=== PATIENT | male | born 1940 | race Caucasian/White ===

== ENCOUNTER → 2020-10-22 13:32 | Outpatient (CLI) | payer MEDICARE, SELFPAY ==
--- NOTE | 2020-10-22 | DI.MRI.S_ITS ---
PROCEDURE: MR ORBITS FACE NECK WO CON INDICATIONS: Localized swelling, mass and lump, neck TECHNIQUE: Noncontrast sagittal T1 spin echo, axial FLAIR, axial gradient echo, axial diffusion and ADC acquired through the brain. Coronal STIR, thin-slice axial T1 spin echo through the orbits. After the administration of contrast, thin-slice axial and coronal T1 spin echo with fat saturation through the orbits, axial T1 spin echo with fat saturation through the brain. COMPARISON: [facility], CT SOFT TISSUE NECK WITH CONTRAST, 06/18/2015, 10:39. FINDINGS: Image quality: Excellent. Orbits: Globes are symmetrical. The optic nerves are normal in size, without abnormal signal or enhancement. No retrobulbar masses or fat abnormalities. The extra-ocular muscles are normal and symmetric in appearance. Lacrimal glands are normal. Optic chiasm is normal. Periorbital soft tissues appear normal. CSF spaces: Ventricles are normal in size and shape. Basal cisterns are patent. No extra-axial fluid collections. Brain: No intracranial bleeds or mass effects. No abnormal intracranial enhancement. Jolley-white matter interface is intact. Diffusion weighted images demonstrate no acute ischemic insults. Pituitary gland appears normal, without sellar or suprasellar masses. Brainstem appears normal. Normal intravascular flow voids are present. Skull and face: Calvarial marrow is normal in signal. There is a focus of increased T2 signal measuring 1.7 x 2.3 by 3.7 cm compared to 1.3 x 2.1 x 3.6 cm at the midline and immediately left of midline at the level of the hyoid bone. Sinuses: Sinuses demonstrate mucous retention cyst versus polyps within the maxillary sinuses bilaterally. Bilateral maxillary, sphenoid and ethmoid sinus mucosal thickening is present. Minimal fluid is present within the mastoid air cells bilaterally, right greater than left. Multilevel degenerative changes are present within the visualized cervical spine. IMPRESSION: 1. 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 2. No other areas of abnormal mass lesion are identified. 3. Prominent pansinus disease. Dictated by: Brissa Mclean M.D. on 10/22/2020 at 16:36 Approved by: Brissa Mclean M.D. on 10/22/2020 at 16:44
--- NOTE | 2020-10-22 | DI.MRI.S_ITS ---
PROCEDURE: MR HEAD/BRAIN WO CON INDICATIONS: AMNESIA TECHNIQUE: Non-contrast axial T1 spin echo, axial T2 fast spin echo, sagittal and axial FLAIR, coronal T2 fast spin echo, axial gradient echo, axial diffusion and ADC through the brain. COMPARISON: [facility], MR, MR ORBITS FACE NECK WO CON, 10/22/2020, 15:52. FINDINGS: Image quality: Excellent. CSF spaces: The lateral ventricles are abnormally prominent and are disproportionately prominent compared to the degree of sulcal atrophy. Basal cisterns are patent. No extra-axial fluid collections. Brain: No intracranial bleeds or mass effects. There is cerebral volume loss for age. There are periventricular and deep white matter chronic small vessel ischemic changes. Brainstem appears normal. Diffusion-weighted images show no acute ischemic insults. No chronic ischemic insults. Normal intravascular flow voids are present. Skull and face: Calvarial bone marrow is normal in signal. Orbits are normal. Note is made of bilateral lens replacements. Sinuses: Large mucous retention cysts can be seen within the maxillary sinuses, left worse than right. There is moderate mucosal thickening within the ethmoid air cells. Soft tissue fullness can be seen within the nasal cavities, left worse than right. No abnormal fluid is seen within the mastoid air cells. IMPRESSION: Abnormally prominent lateral ventricles, which are disproportionately prominent given the degree of sulcal atrophy. Please consider normal pressure hydrocephalus. No findings of acute or subacute infarction can be seen. Likely nasal polyp disease. Please correlate with known patient history and physical examination findings. Incidental note is made of: Maxillary sinus mucous retention cysts Dictated by: Eldon Hidalgo M.D. on 10/22/2020 at 16:56 Approved by: Eldon Hidalgo M.D. on 10/22/2020 at 16:59
== END ==
PROVIDERS: Family Provider Family Medicine; PCP Family Medicine; Referring Provider Family Medicine; Visit Provider Family Medicine
DX: R22.1 Localized swelling, mass and lump, neck (principal); R41.3 Other amnesia; R41.89 Other symptoms and signs involving cognitive functions and awareness; R26.89 Other abnormalities of gait and mobility; M47.812 Spondylosis without myelopathy or radiculopathy, cervical region; J32.4 Chronic pansinusitis; J34.1 Cyst and mucocele of nose and nasal sinus; Z13.5 Encounter for screening for eye and ear disorders
CPT/HCPCS: 70540; 70551

== ENCOUNTER 2021-12-11 14:32 | Emergency (ER) | payer MEDICARE, SELFPAY ==
[2021-12-11] VITALS (20 sets, daily range): BP systolic 144–169; BP diastolic 73–95; PULSE 65–82; RESP 13–35; TEMP 36.6; O2SAT 96–99; BMI 30.7
--- NOTE | 2021-12-11 14:52 | DI.RAD.S_ITS ---
PROCEDURE: XR CHEST 1V INDICATIONS: chest pain TECHNIQUE: One view of the chest was acquired. COMPARISON: [facility], CT, CT CERVICAL SPINE WO CON, 12/11/2021, 15:06. [facility], CT, CT CHEST WITHOUT CONTRAST, 10/22/2020, 9:57. [facility], CR, XR CHEST 2 VIEWS, 10/16/2020, 14:44. [facility], CT, CT HEAD/BRAIN WO CON, 12/11/2021, 15:06. FINDINGS: Surgical changes and devices: Right-sided SHIPFITTER HELPER shunt catheter tubing is seen. Lungs and pleura: On this semiupright portable chest examination, no large pneumothorax or large pleural effusions are seen. No focal infiltrates are seen. Low lung volumes are noted. This causes a crowded appearance to the lung markings and limits evaluation. Mediastinum: The cardiac contours are within normal limits. The aorta demonstrates calcification and tortuosity. Bones and chest wall: Age-appropriate bony degenerative changes are seen. No suspicious bony lesions. Overlying soft tissues appear unremarkable. IMPRESSION: Limited portable chest examination, without a significant cardiopulmonary abnormality identified. Postoperative and degenerative changes are seen. Dictated by: Eldon Hidalgo M.D. on 12/11/2021 at 14:53 Approved by: Eldon Hidalgo M.D. on 12/11/2021 at 14:54
--- NOTE | 2021-12-11 14:52 | DI.CT.S_ITS ---
PROCEDURE: CT HEAD/BRAIN WO CON INDICATIONS: GLF/injury/ history of shunt TECHNIQUE: Noncontrast 4.5 mm thick angled axial sections acquired from the foramen magnum to the vertex, with coronal and sagittal reformats. For radiation dose reduction, the following was used: automated exposure control, adjustment of mA and/or kV according to patient size. COMPARISON: [facility], MR, MR HEAD/BRAIN WO CON, 10/22/2020, 15:52. FINDINGS: Image quality: Excellent. CSF spaces: Basal cisterns are patent. Suspect small subdural hygromas bilaterally. Interval placement of a right posterior approach ventricular shunt catheter which crosses midline tip terminating in the left lateral ventricle anteriorly. Tiny amount of acute subdural hemorrhage present layering along the falx posteriorly, maximum thickness 3-4mm, and likely also the right tentorium. Brain: No midline shift. No intracranial masses or hemorrhage. Jolley-white matter interface is normal. Skull and face: Calvarium and visualized facial bones are intact, without suspicious lesions. Posterior midline scalp hematoma Sinuses: Mucoperiosteal thickening present both maxillary sinuses. IMPRESSION: 1. Tiny amount of acute subdural hemorrhage present layering along the falx posteriorly and likely also the right tentorium. No associated mass effect. 2. Suspect small subdural hygromas bilaterally. Result of small amount acute subdural hemorrhage discussed with Dr. Thomas by Dr. Vergara at 1556 hours on 12/11/2021. Dictated by: Gonzales Vergara M.D. on 12/11/2021 at 15:43 Approved by: Gonzales Vergara M.D. on 12/11/2021 at 15:56
--- NOTE | 2021-12-11 14:52 | DI.CT.S_ITS ---
PROCEDURE: CT CERVICAL SPINE WO CON INDICATIONS: GLF/injury/ history of shunt TECHNIQUE: Noncontrast 3 mm thick sections acquired from the skull base to the T4 level. Sagittal and coronal reformats were then constructed. For radiation dose reduction, the following was used: automated exposure control, adjustment of mA and/or kV according to patient size. COMPARISON: [facility], CT, CT HEAD/BRAIN WO CON, 12/11/2021, 15:06. [facility], CR, XR CHEST 1V, 12/11/2021, 15:06. FINDINGS: Image quality: Excellent. Bones: No fractures or dislocations. Visualized superior ribs are intact. Focal degenerative change is seen involving the C1-C2 interface anteriorly. There is at least moderate disc space narrowing seen at C5-C6 and C6-C7. Bridging anterior osteophytes are seen from at least C5 through T1. Post erected endplate osteophytes are seen, which are worst at C6-C7. Soft tissues: Prevertebral soft tissues are normal in thickness. No paravertebral hematomas. No apical pneumothoraces. Right-sided DIVISION SALES MANAGER shunt catheter tubing is seen, which appears intact were visualized. IMPRESSION: Negative for acute fracture. Cervical spine degenerative changes are seen, which are worst inferiorly. Partially visualized right-sided DIVISION SALES MANAGER shunt catheter tubing. Dictated by: Eldon Hidalgo M.D. on 12/11/2021 at 14:54 Approved by: Eldon Hidalgo M.D. on 12/11/2021 at 14:55
[2021-12-11 15:08] LABS: Add Manual Diff / Slide Review NO; Basophils Absolute Auto 0 /uL (0-100); Basophils Percent Auto 0.5 % (0-2); Eosinophils Absolute Auto 200 /uL (0-450); Eosinophils Percent Auto 2.3 % (2-4); Lymphocytes Absolute Auto 700 /uL (1100-4500); Lymphocytes Percent Auto 7.8 % (25-40); Mean Corpuscular HGB Conc 34.3 % (30-36); Mean Corpuscular Hemoglobin 31.3 PG (26-34); Mean Corpuscular Volume 91.3 fL (80-100); Monocytes Absolute Auto 1000 /uL (0-900); Neutrophils Absolute Auto 7000 /uL (1500-7000); Neutrophils Percent Auto 78.4 % (50-75); Platelet Count 236 X10^3/uL (150-400); Red Blood Cell Count 4.49 X10^6/uL (4.5-5.9); Red Cell Distribution Width 14.7 % (11.6-14.8); White Blood Cell Count 8.9 X10^3/uL (4.5-11.0)
[2021-12-11 15:22] LABS: Alanine Aminotransferase 21 IU/L (<50); Albumin 4.3 g/dL (3.5-5.0); Albumin Globulin Ratio 1.3 (1.0-2.8); Alkaline Phosphatase 74 U/L (38-126); Aspartate Aminotransferase 27 IU/L (17-59); BUN Creatinine Ratio 22.4 (6-22); Bilirubin Total 0.8 mg/dL (0.2-1.3); Blood Urea Nitrogen 13 mg/dL (9-20); Calcium 9.3 mg/dL (8.4-10.2); Carbon Dioxide 27 mmol/L (22-32); Chloride 98 mmol/L (98-107); Creatine Kinase 74 U/L (55-170); Estimated Glomerular Filt Rate > 60 mL/min (>60); Globulin 3.4 g/dL (1.7-4.1); Glucose 95 mg/dL (80-110); HEMOLYSIS 26 (0-50); Lipase 103 U/L (23-300); Magnesium 1.9 mg/dL (1.6-2.3); Potassium 3.8 mmol/L (3.4-5.1); Sodium 133 mmol/L (137-145); Total Protein 7.7 g/dL (6.3-8.2)
[2021-12-11 15:33] LABS: Troponin I < 0.012 ng/mL (0.01-0.034)
--- NOTE | 2021-12-11 16:14 | ED_ITS ---
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 Patient is not on any blood thinners. Patient states he was trying to put his socks on today, he lost his balance and fell backwards hitting the back of his has a headache on his post erior scalp. He defers anything for headache in terms of pain control. He denies loss of consciousness, no dizziness, no lightheadedness, denies any neck pain, no chest pain, no lap back pain. No shortness of breath. No nausea or vomiting, no vision changes. No numbness, tingling or weakness. Both he and his state he is had some slowly progressive difficulties with gait and being off balance. He had his [employer] OPERATOR shunt placed by Dr. Sagastume at [place], [place] in March of 2021. Patient states that he does drink alcohol typically 5-8 alcoholic drinks daily quit 2 days ago and has not had any additional since then. He quit using any tobacco college. He denies recreational or illicit. Lives on [address] with his both state that his mentation seems at his normal baseline. Patient states he felt little shaky but does not feel like he is having significant withdrawals no hallucinations or other mental changes. has not appreciated these as well. Related Data Home Medications Medication Instructions Recorded Confirmed cetirizine 10 mg tablet 10 mg PO QDAYP PRN ##0 10/29/15 ibuprofen 200 mg capsule 200 mg PO PRN #0 caps 12/01/15 glucosamine sulfate 500 mg capsule 1,000 mg PO ##0 11/02/16 (Genicin) omega 3-ays-ivn-fish oil 1,000 mg 1,000 mg PO ##0 11/02/16 (120 mg-180 mg) capsule (Fish Oil) Previous Rx's Medication Instructions Recorded cholecalciferol (vitamin D3) 25 1,000 iu PO QDAY ##90 08/25/11 mcg (1,000 unit) tablet (Vitamin D3) Allergies Allergy/AdvReac Type Severity Reaction Status Date / Time ketoconazole [KETOCONAZOLE] Allergy Intermediate RASH Unverified 06/07/17 12:10 lisinopril [LISINOPRIL] AdvReac Unknown COUGH Unverified 06/07/17 12:10 Review of Systems <Mica Thomas DO - Last Filed: 12/12/21 11:13> Review of Systems ROS Unobtainable: All systems reviewed & are unremarkable except as noted in HPI and below Patient History <Mica Thomas DO - Last Filed: 12/12/21 11:13> Surgical History Status post appendectomy Family History Mother Age: 100 Pulmonary fibrosis Social History Smoking Status: Former smoker Smoking Status: Former smoker alcohol intake frequency: 3 or more drinks per day Substance Use Type: does not use Exam <Mica Thomas DO - Last Filed: 12/12/21 11:13> Narrative Exam Narrative: GEN: Patient appears in mild distress. HEAD: No evidence of trauma, no raccoon/Rasmussen sign. NECK: Nontender, painless range of motion, trachea midline Positive for Nexus criteria, there is no midline line tenderness, distracting injury, altered mental status, neuro deficit, possible recent EtOH. EYES: PERRLA, EOMI ENT: External inspection normal, trachea is midline, TM's are normal no hemotypanum, Nares are clear, no septal hematoma, no dental or oral injury, airway is normal and with normal occlusion, No bony tenderness RESP: Chest is nontender and has symmetric movement, no ecchymosis, breath sounds are normal no crackles, wheezes or rales CVS: Heart sounds are normal, no murmur noted, No JVD. ABG/GI: Nontender, soft, normal bowel sounds, no distention, no organomegaly, pelvic rock is negative NEURO: Oriented AOx3, neuro is grossly intact, sensation and motor is normal all 4 extremities moving, cranial nerves II through XII are intact, GCS is 15, 10/10 muscle strength upper and lower extremities triple client leader bilaterally. Patient has normal heel-hernandez and finger-nose bilaterally sensation intact in upper and lower extremities. No changes to sensation. Gait not tested. PSYCH: Normal mood and affect SKIN: Intact, warm and dry, no crepitus and without decubitus BACK: No CVA tenderness, no vertebral tenderness, no step-off's, no crepitus EXT: Atraumatic, hips are nontender, no pedal edema, normal color and temperature, normal range of motion of extremities with normal tendon exam, 2+ pulses in all four extremities Initial Vital Signs Initial Vital Signs: Vital Signs Temperature 98 F 12/11/21 14:44 Pulse Rate 66 12/11/21 14:44 Respiratory Rate 18 12/11/21 14:44 Blood Pressure 152/74 H 12/11/21 14:44 Pulse Oximetry 99 12/11/21 14:44 Oxygen Delivery Method 12/11/21 14:44 <Donita Tamayo MD - Last Filed: 12/11/21 21:50> Initial Vital Signs Initial Vital Signs: Vital Signs Temperature 98 F 12/11/21 14:44 Pulse Rate 66 12/11/21 14:44 Respiratory Rate 18 12/11/21 14:44 Blood Pressure 152/74 H 12/11/21 14:44 Pulse Oximetry 99 12/11/21 14:44 Oxygen Delivery Method 12/11/21 14:44 Scores <Mica Thomas DO - Last Filed: 12/12/21 11:13> GCS [place] coma scale eye opening: Spontaneous [place] coma scale verbal response: Orientated [place] coma scale motor response: Obey commands [place] coma scale total score: 15 Nexus Score for C-Spine Focal Neurologic deficit present: No Midline spinal tenderness present: No Altered level of conciousness present: No Intoxication present: Yes (maybe) Distracting Injury Present: No Nexus Criteria for C-spine: 1 <Donita Tamayo MD - Last Filed: 12/11/21 21:50> GCS [place] coma scale total score: 15 Nexus Score for C-Spine Nexus Criteria for C-spine: 1 Course <Mica Thomas DO - Last Filed: 12/12/21 11:13> Orders Ordered: ED Orders 12/11/21 14:52 CT cervical spine wo con Stat CT head/brain wo con Stat XR chest 1V Stat EKG-12 Lead Stat 12/11/21 15:01 Complete Blood Count AUTO DIFF Stat Comprehensive Metabolic Panel Stat ETOH [Ethanol (ETOH)] Stat Lipase Stat Magnesium Stat PTT [Partial Thromboplastin Time] Stat Prothrombin Time INR Stat Troponin & CK Cardiac Panel Stat 12/11/21 19:00 CT head/brain wo con Stat Consultations Consultation #1: Neurosurgery [facility], Dr. Johnson recommends Head CT at 4 hours, 1900 and recontact if worsening. Time: 18:33 Vital Signs Vital signs: Vital Signs - 8 hr 12/11/21 14:44 12/11/21 14:53 12/11/21 14:54 Temperature 98 F Pulse Rate 66 78 Respiratory Rate 18 Blood Pressure 152/74 H 159/80 H Pulse Oximetry 99 96 Oxygen Delivery Method Room Air 12/11/21 14:54 12/11/21 15:00 12/11/21 15:00 Temperature Pulse Rate 69 66 Respiratory Rate 14 18 Blood Pressure 148/76 H Pulse Oximetry 96 98 Oxygen Delivery Method <Donita Tamayo MD - Last Filed: 12/11/21 21:50> Orders Ordered: ED Orders 12/11/21 14:52 CT cervical spine wo con Stat CT head/brain wo con Stat XR chest 1V Stat EKG-12 Lead Stat 12/11/21 15:01 Complete Blood Count AUTO DIFF Stat Comprehensive Metabolic Panel Stat ETOH [Ethanol (ETOH)] Stat Lipase Stat Magnesium Stat PTT [Partial Thromboplastin Time] Stat Prothrombin Time INR Stat Troponin & CK Cardiac Panel Stat 12/11/21 19:00 CT head/brain wo con Stat Vital Signs Vital signs: Vital Signs - 8 hr 12/11/21 14:44 12/11/21 14:53 12/11/21 14:54 Temperature 98 F Pulse Rate 66 78 Respiratory Rate 18 Blood Pressure 152/74 H 159/80 H Pulse Oximetry 99 96 Oxygen Delivery Method Room Air 12/11/21 14:54 12/11/21 15:00 12/11/21 15:00 Temperature Pulse Rate 69 66 Respiratory Rate 14 18 Blood Pressure 148/76 H Pulse Oximetry 96 98 Oxygen Delivery Method MDM - Head Injury <Mica Thomas DO - Last Filed: 12/12/21 11:13> Lab Data Result diagrams: 12/11/21 15:01 12/11/21 15:01 Labs: Lab Results 12/11/21 12/11/21 12/11/21 Range/Units 15:01 15:01 15:01 WBC 8.9 (4.5-11.0) X10^3/uL RBC 4.49 L (4.5-5.9) X10^6/uL Hgb 14.0 (13.5-17.5) g/dL Hct 41.0 (41-53) % MCV 91.3 (80-100) fL MCH 31.3 (26-34) PG MCHC 34.3 (30-36) % RDW 14.7 (11.6-14.8) % Plt Count 236 (150-400) X10^3/uL Neut % (Auto) 78.4 H (50-75) % Lymph % (Auto) 7.8 L (25-40) % Bennett % (Auto) 11.0 (3-14) % Eos % (Auto) 2.3 (2-4) % Baso % (Auto) 0.5 (0-2) % Neut # (Auto) 7000 (0749-9253) /uL Lymph # (Auto) 700 L (4599-4867) /uL Bennett # (Auto) 1000 H (0-900) /uL Eos # (Auto) 200 (0-450) /uL Baso # (Auto) 0 (0-100) /uL PT 12.2 (10.1-12.7) SECONDS INR 1.1 (0.9-1.3) APTT 31 (26-36) SECONDS Sodium 133 L (137-145) mmol/L Potassium 3.8 (3.4-5.1) mmol/L Chloride 98 (98-107) mmol/L Carbon Dioxide 27 (22-32) mmol/L BUN 13 (9-20) mg/dL Creatinine 0.58 L (0.66-1.25) mg/dL Estimated GFR > 60 (>60) mL/min BUN/Creatinine Ratio 22.4 H (6-22) Glucose 95 (80-110) mg/dL Calcium 9.3 (8.4-10.2) mg/dL Magnesium 1.9 (1.6-2.3) mg/dL Total Bilirubin 0.8 (0.2-1.3) mg/dL AST 27 (17-59) IU/L ALT 21 (<50) IU/L Alkaline Phosphatase 74 (38-126) U/L Total Creatine Kinase 74 (55-170) U/L CK-MB (CK-2) TNP CK-MB (CK-2) Rel Index TNP Troponin I < 0.012 (0.01-0.034) ng/mL Total Protein 7.7 (6.3-8.2) g/dL Albumin 4.3 (3.5-5.0) g/dL Globulin 3.4 (1.7-4.1) g/dL Albumin/Globulin Ratio 1.3 (1.0-2.8) Lipase 103 (23-300) U/L Ethyl Alcohol ( - 10) mg/dL 12/11/21 Range/Units 15:01 WBC (4.5-11.0) X10^3/uL RBC (4.5-5.9) X10^6/uL Hgb (13.5-17.5) g/dL Hct (41-53) % MCV (80-100) fL MCH (26-34) PG MCHC (30-36) % RDW (11.6-14.8) % Plt Count (150-400) X10^3/uL Neut % (Auto) (50-75) % Lymph % (Auto) (25-40) % Bennett % (Auto) (3-14) % Eos % (Auto) (2-4) % Baso % (Auto) (0-2) % Neut # (Auto) (0463-7292) /uL Lymph # (Auto) (4311-3161) /uL Bennett # (Auto) (0-900) /uL Eos # (Auto) (0-450) /uL Baso # (Auto) (0-100) /uL PT (10.1-12.7) SECONDS INR (0.9-1.3) APTT (26-36) SECONDS Sodium (137-145) mmol/L Potassium (3.4-5.1) mmol/L Chloride (98-107) mmol/L Carbon Dioxide (22-32) mmol/L BUN (9-20) mg/dL Creatinine (0.66-1.25) mg/dL Estimated GFR (>60) mL/min BUN/Creatinine Ratio (6-22) Glucose (80-110) mg/dL Calcium (8.4-10.2) mg/dL Magnesium (1.6-2.3) mg/dL Total Bilirubin (0.2-1.3) mg/dL AST (17-59) IU/L ALT (<50) IU/L Alkaline Phosphatase (38-126) U/L Total Creatine Kinase (55-170) U/L CK-MB (CK-2) CK-MB (CK-2) Rel Index Troponin I (0.01-0.034) ng/mL Total Protein (6.3-8.2) g/dL Albumin (3.5-5.0) g/dL Globulin (1.7-4.1) g/dL Albumin/Globulin Ratio (1.0-2.8) Lipase (23-300) U/L Ethyl Alcohol < 10 ( - 10) mg/dL Imaging Data CT scan - head: Radiologist's Impression: [address] [address] [address] Scan Report Signed Patient: Harris Wallis MR#: [id number] : 1940 Acct:[id number] Age/Sex: 81 / M Date of Service: 12/11/21 Loc: ED Accession Number: [id number] ?? Procedure: CT head/brain wo con Ordering Provider: Mica Thomas D.O. PROCEDURE:? CT HEAD/BRAIN WO CON ? INDICATIONS:? GLF/injury/ history of shunt ? TECHNIQUE:? Noncontrast 4.5 mm thick angled axial sections acquired from the foramen magnum to the vertex, with coronal and sagittal reformats.? For radiation dose reduction, the following was used:? automated exposure control, adjustment of mA and/or kV according to patient size.? ? COMPARISON:? [facility], MR, MR HEAD/BRAIN WO CON, 10/22/2020, 15:52. ? FINDINGS:? Image quality:? Excellent.? ? CSF spaces:? Basal cisterns are patent.? Suspect small subdural hygromas bilaterally.? Interval placement of a right posterior approach ventricular shunt catheter which crosses midline tip terminating in the left lateral ventricle anteriorly.? Tiny amount of acute subdural hemorrhage present layering along the falx posteriorly, maximum thickness 3-4mm, and likely also the right tentorium. ? Brain:? No midline shift.? No intracranial masses or hemorrhage.? Jolley-white matter interface is normal.? ? Skull and face:? Calvarium and visualized facial bones are intact, without suspicious lesions.? Posterior midline scalp hematoma ? Sinuses:? Mucoperiosteal thickening present both maxillary sinuses. ? IMPRESSION:? 1. Tiny amount of acute subdural hemorrhage present layering along the falx posteriorly and likely also the right tentorium.? No associated mass effect. 2. Suspect small subdural hygromas bilaterally. ? Result of small amount acute subdural hemorrhage discussed with Dr. Thomas by Dr. Vergara at 1556 hours on 12/11/2021. ? ? Dictated by: Gonzales Vergara M.D. on 12/11/2021 at 15:43 ? ? Approved by: Gonzales Vergara M.D. on 12/11/2021 at 15:56?? CT - cervical spine: Radiologist's Impression: [place] [address] CT Scan Report Signed Patient: Harris Wallis MR#: [id number] : 1940 Acct:[id number] Age/Sex: 81 / M Date of Service: 12/11/21 Loc: ED Accession Number: [id number] ?? Procedure: CT cervical spine wo con Ordering Provider: Mica Thomas D.O. PROCEDURE:? CT CERVICAL SPINE WO CON ? INDICATIONS:? GLF/injury/ history of shunt ? TECHNIQUE:? Noncontrast 3 mm thick sections acquired from the skull base to the T4 level.? Sagittal and coronal reformats were then constructed.? For radiation dose reduction, the following was used:? automated exposure control, adjustment of mA and/or kV according to patient size.? ? COMPARISON:? [facility], CT, CT HEAD/BRAIN WO CON, 12/11/2021, 15:06.? [facility], CR, XR CHEST 1V, 12/11/2021, 15:06. ? FINDINGS:? Image quality:? Excellent.? ? Bones:? No fractures or dislocations.? Visualized superior ribs are intact.? ? Focal degenerative change is seen involving the C1-C2 interface anteriorly.? There is at least moderate disc space narrowing seen at C5-C6 and C6-C7.? Bridging anterior osteophytes are seen from at least C5 through T1.? Post erected endplate osteophytes are seen, which are worst at C6-C7. ? Soft tissues:? Prevertebral soft tissues are normal in thickness.? No paravertebral hematomas.? No apical pneumothoraces.? ? Right-sided [employer] O[employer]ATOR shunt catheter tubing is seen, which appears intact were visualized. ? ? IMPRESSION:? Negative for acute fracture. ? Cervical spine degenerative changes are seen, which are worst inferiorly. ? Partially visualized right-sided [employer] OPERATOR shunt catheter tubing. ? ? Dictated by: Eldon Hidalgo M.D. on 12/11/2021 at 14:54 ? ? Approved by: Eldon Hidalgo M.D. on 12/11/2021 at 14:55?? Chest x-ray: Radiologist's Impression: Close Head CT (Signed) Stanislaw Vergaraw - 12/11/21 Chest X-Ray (Signed) Eldon Hidalgo - 12/11/[address] (Signed) Eldon Hidalgo - 12/11/21 Orbits/Face/Neck MRI (Signed) Brissa Mclean - 10/22/20 Brain MRI (Signed) Eldon Hidalgo - 10/22/20 [place] [address] XRay Report Signed Patient: Harris Wallis MR#: [id number] : 1940 Acct:[id number] Age/Sex: 81 / M Date of Service: 12/11/21 Loc: ED Accession Number: [id number] ?? Procedure: XR chest 1V Ordering Provider: Mica Thomas D.O. PROCEDURE:? XR CHEST 1V ? INDICATIONS:? chest pain ? TECHNIQUE:? One view of the chest was acquired.? ? COMPARISON:? [facility], CT, CT CERVICAL SPINE WO CON, 12/11/2021, 15:06.? [facility], CT, CT CHEST WITHOUT CONTRAST, 10/22/2020, 9:57.? [facility], CR, XR CHEST 2 VIEWS, 10/16/2020, 14:44.? [facility], CT, CT HEAD/BRAIN WO CON, 12/11/2021, 15:06. ? FINDINGS:? ? Surgical changes and devices:? Right-sided [employer] OPERATOR shunt catheter tubing is seen. ? Lungs and pleura:? On this semiupright portable chest examination, no large pneumothorax or large pleural effusions are seen.? No focal infiltrates are seen.? Low lung volumes are noted. This causes a crowded appearance to the lung markings and limits evaluation.? ? Mediastinum:? The cardiac contours are within normal limits. The aorta dem onstrates calcification and tortuosity. ? Bones and chest wall:? Age-appropriate bony degenerative changes are seen.? No suspicious bony lesions.? Overlying soft tissues appear unremarkable.? ? IMPRESSION:? ? Limited portable chest examination, without a significant cardiopulmonary abnormality identified.? ? Postoperative and degenerative changes are seen.? ? ? Dictated by: Eldon Hidalgo M.D. on 12/11/2021 at 14:53 ? ? Approved by: Eldon Hidalgo M.D. on 12/11/2021 at 14:54?? [facility] Narrative Medical decision making narrative: This is a 81-year-old male with complaint of headache after hitting his head. 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 Patient denies alcohol but states he was drinking as of 2 days ago and drinks to 8 alcoholic drinks daily and states he is had some mild withdraws but denies severe his vital signs currently do not reflect severe withdrawal he is got some mild tremor. He defers anything for withdrawal currently. Defers anything for headache. Images were pushed [facility] and consultation with Neurosurgery. Patient signed out to Dr. Tamayo while awaiting callback from Neurosurgery. Patient is not particularly hypertensive, had some mild tremor. Deferred anything for withdrawal at this time. Did discuss with patient at length that he can have something if he likes. Patient does not have any acute focal neurologic changes although he and his some gait issues that have been slowly progressive. Plan for Head CT at 4 hours, 1900, if worsening to recontact [facility]. If no worsening neurosurgery will sign off. <Donita Tamayo MD - Last Filed: 12/11/21 21:50> Lab Data Labs: Lab Results 12/11/21 12/11/21 12/11/21 Range/Units 15:01 15:01 15:01 WBC 8.9 (4.5-11.0) X10^3/uL RBC 4.49 L (4.5-5.9) X10^6/uL Hgb 14.0 (13.5-17.5) g/dL Hct 41.0 (41-53) % MCV 91.3 (80-100) fL MCH 31.3 (26-34) PG MCHC 34.3 (30-36) % RDW 14.7 (11.6-14.8) % Plt Count 236 (150-400) X10^3/uL Neut % (Auto) 78.4 H (50-75) % Lymph % (Auto) 7.8 L (25-40) % Bennett % (Auto) 11.0 (3-14) % Eos % (Auto) 2.3 (2-4) % Baso % (Auto) 0.5 (0-2) % Neut # (Auto) 7000 (4490-9700) /uL Lymph # (Auto) 700 L (2822-6412) /uL Bennett # (Auto) 1000 H (0-900) /uL Eos # (Auto) 200 (0-450) /uL Baso # (Auto) 0 (0-100) /uL PT 12.2 (10.1-12.7) SECONDS INR 1.1 (0.9-1.3) APTT 31 (26-36) SECONDS Sodium 133 L (137-145) mmol/L Potassium 3.8 (3.4-5.1) mmol/L Chloride 98 (98-107) mmol/L Carbon Dioxide 27 (22-32) mmol/L BUN 13 (9-20) mg/dL Creatinine 0.58 L (0.66-1.25) mg/dL Estimated GFR > 60 (>60) mL/min BUN/Creatinine Ratio 22.4 H (6-22) Glucose 95 (80-110) mg/dL Calcium 9.3 (8.4-10.2) mg/dL Magnesium 1.9 (1.6-2.3) mg/dL Total Bilirubin 0.8 (0.2-1.3) mg/dL AST 27 (17-59) IU/L ALT 21 (<50) IU/L Alkaline Phosphatase 74 (38-126) U/L Total Creatine Kinase 74 (55-170) U/L CK-MB (CK-2) TNP CK-MB (CK-2) Rel Index TNP Troponin I < 0.012 (0.01-0.034) ng/mL Total Protein 7.7 (6.3-8.2) g/dL Albumin 4.3 (3.5-5.0) g/dL Globulin 3.4 (1.7-4.1) g/dL Albumin/Globulin Ratio 1.3 (1.0-2.8) Lipase 103 (23-300) U/L Ethyl Alcohol ( - 10) mg/dL 12/11/21 Range/Units 15:01 WBC (4.5-11.0) X10^3/uL RBC (4.5-5.9) X10^6/uL Hgb (13.5-17.5) g/dL Hct (41-53) % MCV (80-100) fL MCH (26-34) PG MCHC (30-36) % RDW (11.6-14.8) % Plt Count (150-400) X10^3/uL Neut % (Auto) (50-75) % Lymph % (Auto) (25-40) % Bennett % (Auto) (3-14) % Eos % (Auto) (2-4) % Baso % (Auto) (0-2) % Neut # (Auto) (5805-7785) /uL Lymph # (Auto) (7213-3338) /uL Bennett # (Auto) (0-900) /uL Eos # (Auto) (0-450) /uL Baso # (Auto) (0-100) /uL PT (10.1-12.7) SECONDS INR (0.9-1.3) APTT (26-36) SECONDS Sodium (137-145) mmol/L Potassium (3.4-5.1) mmol/L Chloride (98-107) mmol/L Carbon Dioxide (22-32) mmol/L BUN (9-20) mg/dL Creatinine (0.66-1.25) mg/dL Estimated GFR (>60) mL/min BUN/Creatinine Ratio (6-22) Glucose (80-110) mg/dL Calcium (8.4-10.2) mg/dL Magnesium (1.6-2.3) mg/dL Total Bilirubin (0.2-1.3) mg/dL AST (17-59) IU/L ALT (<50) IU/L Alkaline Phosphatase (38-126) U/L Total Creatine Kinase (55-170) U/L CK-MB (CK-2) CK-MB (CK-2) Rel Index Troponin I (0.01-0.034) ng/mL Total Protein (6.3-8.2) g/dL Albumin (3.5-5.0) g/dL Globulin (1.7-4.1) g/dL Albumin/Globulin Ratio (1.0-2.8) Lipase (23-300) U/L Ethyl Alcohol < 10 ( - 10) mg/dL Imaging Data Repeat Head CT: Radiologist's Impression: FINDINGS:? Image quality:? Excellent.? ? CSF spaces:? Basal cisterns are patent.? No significant change in minimal subdural hemorrhage layering along the falx posteriorly and the right tentorium.? Similar probable subdural hygromas.? Ventricles are normal in size and shape.? Right posterior approach ventricular shunt catheter redemonstrated ? Brain:? No midline shift.? No intracranial masses or hemorrhage.? Jolley-white matter interface is normal.? ? Skull and face:? Calvarium and visualized facial bones are intact, without matamoros spicious lesions.? ? Sinuses:? Paranasal sinus disease redemonstrated ? IMPRESSION:? No significant change in minimal subdural hemorrhage layering along the falx posteriorly and the right tentorium.? ? ? Dictated by: Gonzales Vergara M.D. on 12/11/2021 at 19:28 ? ? [facility] Narrative Medical decision making narrative: This is a 81-year-old male with complaint of headache after hitting his head. 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 Patient denies alcohol but states he was drinking as of 2 days ago and drinks to 8 alcoholic drinks daily and states he is had some mild withdraws but denies severe his vital signs currently do not reflect severe withdrawal he is got some mild tremor. He defers anything for withdrawal currently. Defers anything for headache. Images were pushed [facility] and consultation with Neurosurgery. Patient signed out to Dr. Tamayo while awaiting callback from Neurosurgery. Patient is not particularly hypertensive, had some mild tremor. Deferred anythi ng for withdrawal at this time. Did discuss with patient at length that he can have something if he likes. Patient does not have any acute focal neurologic changes although he and his some gait issues that have been slowly progressive. Plan for Head CT at 4 hours, 1900, if worsening to recontact [facility]. If no worsening neurosurgery will sign off. Dr Tamayo, patient seen and independently examine [address] scan is interpreted as no significant change in the minor subdural hemorrhage. Findings reviewed with patient his . He states that his dizziness feels like it is at his baseline and he both are comfortable with home discharge Critical Care Time <Mica Thomas DO - Last Filed: 12/12/21 11:13> Critical Care Time Critical Care Time: Yes Attestation: The high probability of a clinically significant, sudden or life threatening deterioration of the [neuro] system(s) required my full and direct attention, intervention and personal management. The aggregate critical care time was [] minutes. This time is in addition to time spent performing reported procedures but includes the following: [x] Data Review and interpretation [x] Patient assessment and monitoring of vital signs [x] Documentation [x] Medication orders and management <Donita Tamayo MD - Last Filed: 12/11/21 21:50> Critical Care Time Total Critical Care Time: 36 Discharge Plan Departure Patient Disposition: Home Clinical Impression: Acute subdural hematoma, S/P [employer] OPERATOR shunt Instructions: DI for Subdural Hematoma Activity Restrictions/Additional Instructions: Thank you for coming in today Your initial CT scan did show a small amount of bleeding in the back portion of your brain. Your [employer] OPERATOR shunt is functioning appropriately. Care is reviewed with the neurosurgeon at [facility] who recommended repeating the CT scan 4 hours after the initial scan. This CT scan shows no change to the amount of bleeding noticed initially. Given the lack of change, the neurosurgeon has recommended discharge home. If you find that you are having new or worsening symptoms, please do return to the emergency department. You do need to make sure that you are taking all precautions to prevent falling and specifically from hitting her head. Prescriptions: No Action cholecalciferol (vitamin D3) [Vitamin D3] 1,000 UNIT tablet 1,000 iu PO QDAY Qty: 90 11RF cetirizine 10 MG tablet 10 mg PO QDAYP PRNQty: 0 ibuprofen 200 MG capsule 200 mg PO PRNQty: 0 omega [id number]-uzp-fish oil [Fish Oil] 1,000 MG capsule 1,000 mg PO Qty: 0 glucosamine sulfate [Genicin] 500 MG capsule 1,000 mg PO Qty: 0 Referrals: Magalis Lucas ARNP [Primary Care Provider] - Visit Report Forms: Patient Portal/API
[2021-12-11 16:29] LABS: INR 1.1 (0.9-1.3); Prothrombin Time 12.2 SECONDS (10.1-12.7)
[2021-12-11 16:32] LABS: PTT Partial Thromboplastin Tim 31 SECONDS (26-36)
[2021-12-11 16:48] LABS: Ethanol (ETOH) < 10 mg/dL
--- NOTE | 2021-12-11 19:00 | DI.CT.S_ITS ---
PROCEDURE: CT HEAD/BRAIN WO CON INDICATIONS: repeat Head CT @ 1900, + SDH on prior TECHNIQUE: Noncontrast 4.5 mm thick angled axial sections acquired from the foramen magnum to the vertex, with coronal and sagittal reformats. For radiation dose reduction, the following was used: automated exposure control, adjustment of mA and/or kV according to patient size. COMPARISON: [facility], CT, CT HEAD/BRAIN WO CON, 12/11/2021, 15:06. FINDINGS: Image quality: Excellent. CSF spaces: Basal cisterns are patent. No significant change in minimal subdural hemorrhage layering along the falx posteriorly and the right tentorium. Similar probable subdural hygromas. Ventricles are normal in size and shape. Right posterior approach ventricular shunt catheter redemonstrated Brain: No midline shift. No intracranial masses or hemorrhage. Jolley-white matter interface is normal. Skull and face: Calvarium and visualized facial bones are intact, without suspicious lesions. Sinuses: Paranasal sinus disease redemonstrated IMPRESSION: No significant change in minimal subdural hemorrhage layering along the falx posteriorly and the right tentorium. Dictated by: Gonzales Vergara M.D. on 12/11/2021 at 19:28 Approved by: Gonzales Vergara M.D. on 12/11/2021 at 19:37
== END 2021-12-11 22:03 | disposition home or self-care (01) ==
PROVIDERS: Emergency Medicine; Emergency Provider Emergency Medicine; Family Provider Family Medicine; PCP Nurse Practitioner Family
DX: S06.5X0A Traumatic subdural hemorrhage without loss of consciousness, initial encounter (principal); R25.1 Tremor, unspecified; Z98.2 Presence of cerebrospinal fluid drainage device; R51.9 Headache, unspecified; R07.9 Chest pain, unspecified; W07.XXXA Fall from chair, initial encounter
CPT/HCPCS: 36415; 70450; 71045; 72125; 80053; 80320; 82550; 83690; 83735; 84484; 85025; 85610; 85730; 99283; 99291